=== PATIENT | male | born 1975 ===

== ENCOUNTER 2024-02-13 17:49 | Emergency (ER) | payer SELFPAY ==
[~2024-02-13] VITALS: Ht 167.6 cm; Wt 90.7 kg
[2024-02-13 17:59] VITALS: BP 136/83; TEMP 100; O2SAT 99
[2024-02-13 19:09] VITALS: PULSE 92; RESP 18
[2024-02-13] MEDS: IBUPROFEN 600MG TABLET PO ONE (19:46)
== END 2024-02-13 20:18 | disposition home or self-care (01) ==
LOC: ER 17:49
DX: B34.9 Viral infection, unspecified (principal); Z20.822 Contact with and (suspected) exposure to COVID-19
CPT/HCPCS: 71045; 87426; 87804; 99284